=== PATIENT | male | born 1965 | race Caucasian/White ===

== ENCOUNTER 2020-04-21 13:19 | Emergency (ER) | payer OTHER, SELFPAY ==
[2020-04-21] VITALS (15 sets, daily range): BP systolic 107–142; BP diastolic 66–92; PULSE 72–83; RESP 11–24; TEMP 36.9; O2SAT 82–100
--- NOTE | ~2020-04-21 | XR_ITS ---
EXAMINATION: XR chest 2V EXAM DATE: 04/21/2020 14:01 INDICATION: Left upper chest pain. TECHNIQUE: Frontal and lateral projections of the chest obtained and reviewed. Comparison is made to prior examination from 03/11/2018. FINDINGS: Cervical fusion hardware. The lungs are clear. There are no pleural effusions. The cardi omediastinal silhouette is within normal limits. There is no pneumothorax suspected. The bones and soft tissues are unremarkable. IMPRESSION: No acute cardiopulmonary findings. Reviewed, dictated and finalized at location A.
--- NOTE | 2020-04-21 13:32 | ECG_ITS ---
Measurements Intervals [place] Rate: 86 P: 68 GA: 148 QRS: 43 QRSD: 102 T: 53 QT: 371 QTc: 445 Interpretive Statements SINUS RHYTHM BASELINE ARTIFACT- I, II, III, AVF ABNORMAL ECG Electronically Signed On 04-21-2020 14:02:50 CDT by Jose Baez D.O.
[2020-04-21] MEDS: ASPIRIN 81 MG CHEWABLE TABLET 324 MG PO (13:49)
[2020-04-21 13:52] LABS: Basophils Absolute Auto 0.1 K/mm3 (0.0-0.1); Basophils Percent Auto 0.9 % (0.2-1.2); Eosinophils Absolute Auto 0.4 K/mm3 (0-0.3); Eosinophils Percent Auto 4.9 % (0-4.4); Hematocrit 37.1 % (42.0-52.0); Hemoglobin 13.2 g/dL (14.0-18.0); Immature Granulocyte Absolute 0.01 K/mm3 (0.00-0.031); Immature Granulocyte Percent A 0.1 % (0-0.5); Lymphocytes Percent Auto 36.7 % (18.3-44.2); Mean Corpuscular HGB Conc 35.6 g/dl (32-36); Mean Corpuscular Hemoglobin 34.2 pg (26-34); Mean Corpuscular Volume 96.1 fl (80-100); Mean Platelet Volume 9.7 fl (7.4-10.4); Monocytes Absolute Auto 0.5 K/mm3 (0.1-0.6); Monocytes Percent Auto 6.6 % (2.6-8.5); Neutrophils Absolute Auto 3.9 K/mm3 (1.3-6.7); Neutrophils Percent Auto 50.8 % (45.5-73.1); Platelet Count Result 206 k/mm3 (150-375); Red Blood Count 3.86 M/mm3 (4.6-6.20); White Blood Count 7.6 K/mm3 (4.5-10.0)
[2020-04-21 14:01] LABS: INR 0.9; Prothrombin Time 11.9 Seconds (11.1-14.7)
[2020-04-21 14:02] LABS: Partial Thromboplastin Time 27.9 SECONDS (22.3-36.8)
[2020-04-21 14:05] LABS: Anion Gap 10 mmol/L (8-16); Blood Urea Nitrogen 14 mg/dL (9-20); Calcium 10.1 mg/dL (8.4-10.2); Carbon Dioxide 25 mmol/L (22-30); Chloride 104 mmol/L (98-107); Estimated CRCL calculation 103 ml/min; Estimated Glomerular Filt Rate > 60; Glucose 165 mg/dL (75-110); Potassium 3.9 mmol/L (3.4-5.0); Sodium 139 mmol/L (137-145)
--- NOTE | 2020-04-21 14:14 | ED.CHESTPAIN ---
HPI - Chest Pain General Chief Complaint: Chest Pain Stated Complaint: CP Time Seen by Provider: 04/21/20 13:39 Source: patient Mode of arrival: ambulatory Limitations: no limitations History of Present Illness HPI narrative: This is a 54 year old male that presents to the ER for left sided chest pain since yesterday. Reports he had been walking around at work yesterday. Reports he started to have left sided chest pain that was sharp in nature. Reports he took 2 nitro with some relief. Although he did continue to have some intermittent chest pains last night. Denies any chest pain currently. Reports shortness of breath today as well. Also reports he thinks he tweaked his knee at work. Has history of surgery on the right knee. Reports he has been having some aching to the right knee over the last couple of weeks. Reports pain with walking. Denies fever, cough, edema or erythema. Related Data Home Medications Medication Instructions Recorded Confirmed alprazolam 04/21/20 04/21/20 atorvastatin 04/21/20 metformin mg 04/21/20 metoprolol tartrate 04/21/20 nitroglycerin mg 04/21/20 ticagrelor [Brilinta] mg 04/21/20 Allergies Allergy/AdvReac Type Severity Reaction Status Date / Time niacin Allergy Mild RASH, Verified 04/21/20 13:31 Review of Systems Review of Systems: Narrative: CONSTITUTIONAL: Denies fever CARDIOVASCULAR: Reports chest pain. Denies edema. RESPIRATORY: Reports dyspnea. Denies cough All systems reviewed & are unremarkable except as noted in HPI and below PMFSH Past Medical History Medical History (Updated 04/21/20 @ 17:13 by Eliana Raya PA-C) History of coronary artery disease History of hyperlipidemia History of hypertension Surgical History Surgical History (Updated 04/21/20 @ 14:20 by Eliana Raya PA-C) History of coronary artery stent placement Social History Social History (Updated 04/21/20 @ 14:20 by Eliana Raya PA-C) Smoking status: Current some day smoker Gender identity (if verbalized by the patient): Male Exam Narrative: Exam Narrative: GENERAL: Well-appearing, obese, and in no acute distress. HEAD: Normocephalic, atraumatic. EYES: EOMI. NECK: Supple. No adenopathy or masses. No carotid bruits or JVD CHEST: Clear to auscultation. No respiratory distress. No wheezes rales or rhonchi HEART: Regular rate and rhythm. No murmur heard. Normal peripheral pulses. EXTREMITIES: Normal range of motion. No edema, erythema or obvious deformity. SKIN: Warm, dry, no rash. NEURO: No focal deficits. Alert and oriented x3. PSYCH: Normal mood and affect Course Consultations Consultation #1: Spoke with cardiology on-call, Iwona Alejandro about patient and work-up. Patient is to follow-up in clinic at his scheduled appointment. Date: 04/21/20 Time: 17:12 Vital Signs Vital signs: Vital Signs Temperature 98.4 F 04/21/20 13:28 Pulse Rate 83 04/21/20 13:28 Respiratory Rate 17 04/21/20 13:28 Blood Pressure 126/66 04/21/20 13:28 Pulse Oximetry 98 04/21/20 13:28 Temperature 98.4 F 04/21/20 13:28 Pulse Rate 76 04/21/20 15:03 Respiratory Rate 23 H 04/21/20 15:03 Blood Pressure 121/71 04/21/20 15:03 Pulse Oximetry 97 04/21/20 15:03 MDM - Chest Pain MDM Narrative Medical decision making narrative: Patient presents to the emergency department for intermittent episodes of chest pain yesterday. No active chest pain while in the ED today. His vitals are normal. BNP is not elevated. D-dimer is negative. EKG is without concerning changes. Baseline and 3-hour troponin are negative. Chest x-ray is without acute findings. His heart score is a 5. This would have him stay and be observed. Although, patient reports he will not stay for any further observation. Spoke with cardiology on-call, Iwona Alejandro about patient and work-up. Patient is to follow-up in clinic at his scheduled appointment. He was given warnings to return to the ER Lab Data Att
[2020-04-21 14:17] LABS: Troponin I < 0.012 ng/mL (0.000-0.034)
[2020-04-21 14:46] LABS: D Dimer 0.39 ug/mL (<0.48)
[2020-04-21 14:57] LABS: NT Pro B Type Natriuretic Pept 32 PG/ML (5-100)
[2020-04-21 16:19] LABS: Troponin I < 0.012 ng/mL (0.000-0.034)
== END 2020-04-21 17:28 | disposition home or self-care (01) ==
PROVIDERS: Physician Assistant; Emergency Provider Emergency Medicine; PCP Internal Medicine
DX: R07.89 Other chest pain (principal); I25.10 Atherosclerotic heart disease of native coronary artery without angina pectoris; E78.5 Hyperlipidemia, unspecified; I10 Essential (primary) hypertension; Z95.5 Presence of coronary angioplasty implant and graft; F17.200 Nicotine dependence, unspecified, uncomplicated; R94.31 Abnormal electrocardiogram [ECG] [EKG]; R06.02 Shortness of breath
CPT/HCPCS: 36415; 71046; 80048; 83880; 84484; 85025; 85380; 85610; 85730; 93005; 99284; A9270

== ENCOUNTER 2020-07-08 15:35 | Outpatient (CLI) | payer OTHER, SELFPAY ==
[2020-07-08 16:30] LABS: Troponin I < 0.012 ng/mL (0.000-0.034)
== END 2020-07-08 15:36 | disposition home or self-care (01) ==
LOC: ANHLAB 15:37
PROVIDERS: PCP Internal Medicine; Visit Provider Nurse Practitioner Adult Health
DX: R07.9 Chest pain, unspecified (principal)
CPT/HCPCS: 36415; 84484

== ENCOUNTER 2020-10-13 12:10 | Emergency (ER) | payer OTHER, SELFPAY ==
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
[2020-10-13 12:15] VITALS: BP 134/86; PULSE 91; RESP 16; TEMP 36.1; O2SAT 99
--- NOTE | 2020-10-13 14:05 | PC.NURSE ---
20/70 with right eye only and left eye only, 20/50 with both eyes
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
== END 2020-10-13 14:30 | disposition home or self-care (01) ==
PROVIDERS: Emergency Provider Emergency Medicine; PCP Internal Medicine
DX: S02.2XXA Fracture of nasal bones, initial encounter for closed fracture (principal); S05.12XA Contusion of eyeball and orbital tissues, left eye, initial encounter; S05.11XA Contusion of eyeball and orbital tissues, right eye, initial encounter; I25.10 Atherosclerotic heart disease of native coronary artery without angina pectoris; E78.5 Hyperlipidemia, unspecified; I10 Essential (primary) hypertension; Z95.5 Presence of coronary angioplasty implant and graft; F17.200 Nicotine dependence, unspecified, uncomplicated; Y04.0XXA Assault by unarmed brawl or fight, initial encounter
CPT/HCPCS: 70450; 70486; 99284

== ENCOUNTER 2021-01-17 08:15 | Outpatient (CLI) | payer OTHER, SELFPAY ==
--- NOTE | ~2021-01-17 | US_ITS ---
EXAMINATION: US art doppler w press LE BI DATE: 01/17/2021 09:06 INDICATION: Left lower limb pain TECHNIQUE: Segmental pressures and plethysmographic and Doppler waveforms of the brachial and lower e xtremity arteries were obtained. COMPARISON: None. FINDINGS: Right and left brachial artery pressures of 102 mm Hg and 113 mm Hg, respectively, are concordant (no rmal difference <= 30 mmHg). The right and left high-thigh pressure indices are 1.12 and 1.22, respec tively (normal > 1.2). The right ankle-brachial index (TITA) is 1.10 (normal >= 0.9-1). The right great toe-brachial index (T BI) is 0.93 (normal >= 0.6-0.8). The right lower extremity segmental pressure gradients are normal (n ormal gradients <= 20-30 mmHg between adjacent levels on the same leg or the same levels on the two l egs). Arterial waveforms are triphasic with brisk systolic upstrokes throughout the arteries of the r ight lower limb. The left TITA is 1.08. The left TBI is 0.91. The left lower extremity segmental pressure gradients are normal. Arterial waveforms are biphasic at the left popliteal artery and triphasic at the remaining arteries of the left lower limb with brisk systolic upstrokes throughout. IMPRESSION: 1. Normal TITA's and TBI's bilaterally. No significant occlusive disease. Reviewed, dictated and finalized at location A.
== END 2021-01-17 08:16 | disposition home or self-care (01) ==
PROVIDERS: PCP Internal Medicine; Visit Provider Internal Medicine Cardiovascular Disease
DX: M79.605 Pain in left leg (principal)
CPT/HCPCS: 93923

== ENCOUNTER → 2021-07-06 13:54 | Outpatient (CLI) | payer OTHER, SELFPAY ==
--- NOTE | ~2021-07-06 | XR_ITS ---
EXAMINATION: XR chest 2V EXAM DATE: 07/06/2021 14:29 INDICATION: Chest Pain, unspecified TECHNIQUE: Frontal and lateral projections of the chest obtained and reviewed. Comparison is made to prior examination from 04/21/2020. FINDINGS: The lungs are clear. There are no pleural effusions. The cardiomediastinal silhouette is within normal limits. There is no pneumothorax suspected. The bones and soft tissues are unremarkab le. Cervical fusion hardware. IMPRESSION: No acute cardiopulmonary findings. Reviewed, dictated and finalized at location B. [employer] DIRECT[employer]
--- NOTE | ~2021-07-06 | CT_ITS ---
EXAMINATION: CT abdomen pelvis w con DATE: 07/06/2021 14:45 INDICATION: Unspecified abdominal pain. TECHNIQUE: Computed tomography (CT) of the abdomen and pelvis was performed with 100 cc Omnipaque 350 intravenous contrast. The dose-length product was 1015.21 mGy-cm. Automated exposure control and ite rative reconstruction technique were employed. COMPARISON: None. FINDINGS: There is interlobular septal thickening peripherally in the lung bases with subtle areas of groundglass opacity, possibly chronic interstitial lung disease. Heart size is normal. No significan t pleural or pericardial effusion. Mild atherosclerosis. Retroaortic left renal vein. There is a 6 mm nonobstructing left renal stone. There are small subcentimeter hypodensities in the kidneys, most li julio benign cysts. Fatty infiltration of the liver. Gallbladder is present. The spleen, pancreas, adrenal glands are unr emarkable. Nonobstructive bowel gas pattern. No pelvic masses or fluid collections. Normal appendix. No evidence for diverticulitis. There are surgical changes of the anterior abdominal wall consistent with previous hernia repair. Mild lumbar spondylosis. IMPRESSION: 1. No acute abdominal abnormality identified. 2: Nonobstructing 6 mm left renal stone. 3: Probable mild chronic interstitial lung disease. Reviewed, dictated and finalized at location A. [employer]
--- NOTE | ~2021-07-06 | US_ITS ---
EXAMINATION: US scrotum doppler EXAM DATE: 07/06/2021 14:29 INDICATION: Scrotal Pain . Intermittent scrotal pain 3-5 months right side. TECHNIQUE: Multiple grayscale and Doppler images of the testicles and scrotum were obtained bilateral ly. There is no prior study for comparison. FINDINGS: Right testicle measures 3.9 x 2.3 x 3.2 cm and is morphologically normal. Low resistance Doppler [place] w confirmed. The epididymis is unremarkable. Small varicocele. Scrotalith. Left testicle measures 4.4 x 2.5 x 2.8 cm and is morphologically normal. Low resistance Doppler flow confirmed. The epididymis is unremarkable. Trace hydrocele. IMPRESSION: 1. Small right varicocele. 2. Trace left hydrocele. Reviewed, dictated and finalized at location B. WORKER
== END ==
PROVIDERS: PCP Internal Medicine; Visit Provider Internal Medicine
DX: R10.9 Unspecified abdominal pain (principal); N43.3 Hydrocele, unspecified; I86.1 Scrotal varices; N20.0 Calculus of kidney
CPT/HCPCS: 71046; 74177; 76870; 93976; Q9967

== ENCOUNTER → 2022-06-12 12:34 | Outpatient (CLI) | payer OTHER, SELFPAY ==
--- NOTE | ~2022-06-12 | XR_ITS ---
XR abdomen/kub 1V 06/12/2022 12:53 Indication: Hematuria Procedure: KUB Comparison: No prior studies for comparison. Findings: Bowel gas pattern is nonobstructive. There are surgical changes of ventral hernia repair. T here are pelvic phleboliths. The kidneys are obscured by bowel content. There is a calcification at t he L3-4 level on the left, possibly ureteral stone. Consider correlation with CT. There is moderate l umbar spondylosis. Impression: 1: Possible proximal left ureteral stone at the L3-4 level. Center correlation with CT. Reviewed, dictated and finalized at location A. [employer] Impression: 1: Possible proximal left ureteral stone at the L3-4 level. Center correlation with CT.
== END ==
PROVIDERS: PCP Internal Medicine
DX: N20.0 Calculus of kidney (principal)
CPT/HCPCS: 74018

== ENCOUNTER → 2022-10-16 11:14 | Outpatient (CLI) | payer BC, SELFPAY ==
--- NOTE | ~2022-10-16 | CT_ITS ---
EXAMINATION: CT chest high resolution wo co DATE: 10/16/2022 11:36 INDICATION: Abnormal findings on other diagnostic imaging TECHNIQUE: Computed tomography (CT) of the chest was performed without intravenous contrast. Automate d exposure control and iterative reconstruction technique were employed. Exam dose: 552.89 mGy-cm to ganesh exam DLP. COMPARISON: 07/06/2021 2 view chest 07/06/2021 CT abdomen pelvis FINDINGS: Normal heart size. Coronary calcifications. No pericardial or pleural effusion. No thoracic aortic aneurysm. No hilar or mediastinal mass lesion or lymphadenopathy. Normal morphology of the adrenal glands. Status post lower anterior cervical spine surgical fusion. There is patchy mild lobular septal soft tissue thickening of the peripheral lung rae, suggesting usual interstitial pneumonia type interstitial fibrosis. No pulmonary infiltrate or consolidation or suspicious pulmonary mass lesion is noted. Old healed lateral left fifth, sixth and seventh rib fractures. Lower anterior cervical spine surgica l fusion. Mild degenerative spurring of the thoracic and lumbar spine. IMPRESSION: Probable usual interstitial pneumonia interstitial fibrosis Reviewed, dictated and finalized at Location A. Reviewed, dictated and finalized at location L.
== END ==
PROVIDERS: PCP Internal Medicine; Visit Provider Internal Medicine Pulmonary Disease
DX: J84.9 Interstitial pulmonary disease, unspecified (principal)
CPT/HCPCS: 71250

== ENCOUNTER 2022-10-24 09:00 | Outpatient (CLI) | payer BC, SELFPAY ==
--- NOTE | 2022-10-24 11:29 | WPDSIXMINUTE ---
Six Minute Walk Procedure Procedure Performed Pulmonary Stress Test (6 min walk) Six Minute Walk Six Minute Walk: This is a 6 minute walk test. The test was performed and interpreted in accordance with the 2014 ERS/ATS task force guidelines. Findings: The patient's resting room air oxygen saturation measured by pulse oximetry was 95% and heart rate was 903 bpm. Patient ambulated for 518 meters and oxygen saturation remained 94 to 98%. Heart rate at the end of the study was 109 bpm. The patient did not qualify for supplemental oxygen at rest or with ambulation. There are no prior studies for comparison.
--- NOTE | 2022-10-24 11:30 | WPDPFTINT ---
PFT Procedure Performed PFT Procedure Performed Spirometry with Pre/Post Bronchodilator Plethysmography (Lung Vol) Diffusing Cap (DLCO) Flow Vol Loop PFT Interpretation This is a pulmonary function test with pre and post-bronchodilator spirometry, plethysmography and diffusing capacity. The test was performed and results interpreted in accordance with the 2019 and 2005 ATS/ERS Task Force guidelines respectively using the Global Lung Function Initiative-2012 reference equations. Patient demonstrated good effort and cooperation. Reproducibility criteria were met. The quality of the pre bronchodilator spirometry maneuver was Grade B and post bronchodilator spirometry maneuver was Grade A. Findings: Spirometry: The contour the inspiratory and expiratory flow tracing are normal. The pre bronchodilator FVC is 3.82 L, 90% predicted. The pre bronchodilator FEV1 is 3.22 L, 96% predicted. The pre bronchodilator FEV1: FVC ratio is 84%. The post bronchodilator FVC is 4.08 L, representing a 7% increase. The post bronchodilator FEV1 is 3.36 L, representing a 5% increase. The post bronchodilator FEV1: FVC ratio is 82%. Plethysmography: The total lung capacity is 7.40 L, 116% predicted. Functional residual capacity is 4.50 L, 139% predicted. The residual volume is 3.58 L, 178% predicted. Diffusing capacity: The diffusing capacity unadjusted for hemoglobin and carboxyhemoglobin is 23.3, 84% predicted. The diffusing capacity adjusted for alveolar volume is 4.32, 96% predicted. Impression: The spirometry is normal without evidence of an obstructive abnormality. There is no significant improvement after inhaling a single dose of albuterol. The total lung capacity and functional residual capacity are normal with an increased residual volume. This is an abnormal but nonspecific lung volume pattern. The diffusing capacity is normal. There are no prior studies for comparison.
== END 2022-10-24 09:01 | disposition home or self-care (01) ==
PROVIDERS: PCP Internal Medicine; Visit Provider Internal Medicine Pulmonary Disease
DX: R06.00 Dyspnea, unspecified (principal); J40 Bronchitis, not specified as acute or chronic; Z72.0 Tobacco use
CPT/HCPCS: 94060; 94618; 94726; 94729

== ENCOUNTER 2022-11-21 21:43 | Emergency (ER) | payer BC, SELFPAY ==
--- NOTE | ~2022-11-21 | CT_ITS ---
EXAMINATION: CT abdomen pelvis wo con DATE: 11/21/2022 22:06 INDICATION: left flank pain TECHNIQUE: Computed tomography (CT) of the abdomen and pelvis was performed without intravenous contr ast. Automated exposure control and iterative reconstruction technique were employed. The dose-length product was 1226.54 mGy-cm. COMPARISON: 07/06/2021. FINDINGS: Lower thorax: Moderate coronary artery calcifications. Peripheral reticulation in the lung bases. Liver: Hepatomegaly with diffuse fatty infiltration Biliary/Gallbladder: Gallbladder is collapsed. No bile duct dilation. Pancreas: No mass or duct dilation. Spleen: Normal. Adrenals:No mass. Kidneys: Subcentimeter hemorrhagic cyst in the left upper pole. Punctate nonobstructing left upper po le calcification. Subtle hypodensities of the renal pyramids in the right kidney may represent medull kelly nephrocalcinosis versus nonobstructing calculi. Moderate left and mild right perinephric strandin g. Mild left pelviectasis and caliectasis. 6 x 8 mm calcification in the left UPJ. GI tract: No small or large bowel dilation. Normal appendix. Diverticulosis without diverticulitis. Mesentery/Peritoneum: No ascites, mass, or free air. Retroperitoneum: No mass. Atherosclerotic abdominal aortic and/or arterial calcifications. Pelvis: The urinary bladder is mostly decompressed. Mild prostatomegaly with prostatic calcifications . Soft Tissues: Anterior umbilical hernia mesh. Bones: No acute osseous finding. IMPRESSION: 6 x 8 mm calcification at the left UPJ causing moderate obstructive uropathy. Reviewed, dictated and finalized at location K.
--- NOTE | ~2022-11-21 | XR_ITS ---
Supine and upright views of the abdomen Clinical history: Renal stone COMPARISON: 06/12/2022, and CT performed earlier on 11/21/2022 Findings: Bowel gas pattern is nonspecific. No evidence for obstruction or free air. Possible [address] one projecting just superior to the left iliac crest. Stable pelvic phleboliths. Evidence of prior he rniorrhaphy. Osseous structures are intact. Impression: Suspected 5 mm stone projecting just superior to the left iliac crest. Reviewed, dictated and finalized at location M. Impression: Suspected 5 mm stone projecting just superior to the left iliac crest.
[2022-11-21 21:46] VITALS: BP 181/110; PULSE 99; RESP 20; TEMP 36.1; O2SAT 100
[2022-11-21 22:00] LABS: Basophils Percent Auto 0.5 % (0.2-1.2); Eosinophils Absolute Auto 0.4 K/mm3 (0-0.3); Eosinophils Percent Auto 4.1 % (0-4.4); Hematocrit 37.5 % (42.0-52.0); Hemoglobin 13.1 g/dL (14.0-18.0); Immature Granulocyte Absolute 0.01 K/mm3 (0.00-0.031); Immature Granulocyte Percent A 0.1 % (0-0.5); Lymphocytes Absolute Auto 3.94 K/mm3 (0.9-3.2); Lymphocytes Percent Auto 46.6 % (18.3-44.2); Mean Corpuscular HGB Conc 34.9 g/dl (32-36); Mean Platelet Volume 9.2 fl (7.4-10.4); Monocytes Absolute Auto 0.5 K/mm3 (0.1-0.6); Monocytes Percent Auto 5.7 % (2.6-8.5); Neutrophils Absolute Auto 3.6 K/mm3 (1.3-6.7); Platelet Count Result 162 k/mm3 (150-375); Red Blood Count 3.64 M/mm3 (4.6-6.20); Red Cell Distribution Width 14.3 % (11.5-14.5); White Blood Count 8.5 K/mm3 (4.5-10.0)
[2022-11-21 22:11] LABS: Alanine Aminotransferase 75 U/L (6-50); Albumin Level 4.9 g/dL (3.5-5.1); Alkaline Phosphatase 106 U/L (38-126); Anion Gap 11 mmol/L (8-16); Aspartate Amino Transferase 82 U/L (17-59); Bilirubin,Total 0.7 mg/dL (0.2-1.3); Blood Urea Nitrogen 14 mg/dL (9-20); Calcium 9.2 mg/dL (8.4-10.2); Carbon Dioxide 24 mmol/L (22-30); Chloride 100 mmol/L (98-107); Estimated CRCL calculation 90 ml/min; Estimated Glomerular Filt Rate > 60; Glucose 180 mg/dL (65-110); Potassium 4.2 mmol/L (3.4-5.0); Sodium 135 mmol/L (137-145)
--- NOTE | 2022-11-21 22:21 | PC.NURSE ---
Pt provided urine sample and believes he may have passed a stone. There is mucous present. Pt states his pain has mostly resolved at this time.
[2022-11-21 22:31] LABS: Appearance Urine Clear (Clear); Bacteria Urine None Seen /hpf; Bilirubin Urine Negative (Negative); Blood Urine 3+ (Negative); Color Urine Yellow (Yellow); Glucose Urine UA Negative (Negative); Ketones Urine Negative (Negative); Leukocyte Esterase Ur Negative LEU/UL (Negative); Nitrate Urine Negative (Negative); Non Pathogenic Casts 0-2; Protein Urine 1+ mg/dL (Negative); RBC Urine >100 /hpf (0-2); Specific Grav Ur 1.012 (1.001-1.035); Squamous Epithelial Cell Urine None seen /hpf (Few); Urobilinogen Urine 0.2 mg/dL (<2.0); WBC Urine 0-5 /hpf
[2022-11-21 22:37] LABS: Add Urine Microscopic? YES
[2022-11-21] MEDS: ONDANSETRON INJ 4 MG/2 ML VIAL IV PUSH (23:02)
[2022-11-21] MEDS: MORPHINE SULFATE (*CRX) 4 MG/ML INJ IV PUSH (23:02)
--- NOTE | 2022-11-21 23:22 | ED.GENADULT ---
HPI - General Adult General Chief complaint: Urogenital-Male <Adams Grissom PA-C - Last Filed: 11/22/22 02:13> Stated complaint: possible kidney stone <JUDI Nolan Last Filed: 11/22/22 02:13> Time Seen by Provider: 11/21/22 22:46 <JUDI Nolan Last Filed: 11/22/22 02:13> Source: patient <JUDI Nolan Last Filed: 11/22/22 02:13> Limitations: no limitations <JUDI Nolan Last Filed: 11/22/22 02:13> History of Present Illness HPI narrative: This is a 57-year-old male with PMH of ILD, CAD, HLD, HTN who presents to the ED with chief complaint of left flank pain onset earlier today just prior to arrival. Patient states the flank pain radiates around into the suprapubic area and left side of the abdomen. Endorses hematuria. Denies dysuria or frequency. Patient states that when he gave a urine sample he thought he saw a stone in the cup. Does note a history of kidney stone many years ago and states this feels the same. Denies fevers, chills, vomiting, diarrhea. Patient also notes he has had problems with hematuria for the past few months and has been seeing his urologist but states his insurance has not been able to pay for CT scans. <JUDI Nolan Last Filed: 11/22/22 02:13> Related Data Home medications: Home Medications Medication Instructions Recorded Confirmed alprazolam 0.25 mg tablet 04/21/20 04/21/20 atorvastatin 40 mg tablet 04/21/20 metformin 500 mg tablet mg 04/21/20 metoprolol tartrate 25 mg tablet 04/21/20 nitroglycerin 0.4 mg sublingual mg 04/21/20 tablet ticagrelor 60 mg tablet (Brilinta) mg 04/21/20 <JUDI Nolan Last Filed: 11/22/22 02:13> Allergies/adverse reactions: Allergies Allergy/AdvReac Type Severity Reaction Status Date / Time niacin Allergy Mild RASH, Verified 09/06/22 09:11 <Adams Grissom PA-C - Last Filed: 11/22/22 02:13> Review of Systems Review of Systems: CONSTITUTIONAL: Denies fever, chills, or sweats. EYES: Denies visual changes, redness, or discharge. ENT: Denies rhinorrhea, congestion, sore throat, or otalgia. CARDIOVASCULAR: Denies chest pain, palpitations, or edema. RESPIRATORY: Denies cough or dyspnea. GASTROINTESTINAL: See HPI GENITOURINARY: Denies dysuria or hematuria. SKIN: Denies rash or itching. MUSCULOSKELETAL: Denies back pain, joint pain, or myalgia. NEUROLOGIC: Denies headache, numbness, dizziness, or weakness. PSYCHIATRIC: Denies anxiety or depression. <Adams Grissom PA-C - Last Filed: 11/22/22 02:13> PMFSH Past Medical History Medical History: Medical History History of coronary artery disease History of hyperlipidemia History of hypertension <Adams Grissom PA-C - Last Filed: 11/22/22 02:13> Surgical History Surgical History: Surgical History History of coronary artery stent placement <Adams Grissom PA-C - Last Filed: 11/22/22 02:13> Social History Social History: Social History Smoking status: Current some day smoker Gender identity (if verbalized by the patient): Male <Adams Grissom PA-C - Last Filed: 11/22/22 02:13> Exam Narrative: GENERAL: Well-appearing, well-nourished, and in no acute distress. HEAD: Normocephalic, atraumatic. EYES: PERRLA and EOMI. ENT: Nares clear, no rhinorrhea or epistaxis. Mucous membranes moist. Oropharynx without tonsillar hypertrophy exudate or other lesions. NECK: Supple. No adenopathy or masses. CHEST: No respiratory distress. Clear to auscultation. No wheezes rales or rhonchi HEART: Regular rate and rhythm. No murmur heard. Normal peripheral pulses. ABDOMEN: Left flank tenderness. Also has some left lower quadrant tenderness. Negative for right flank tenderness. Moderate distention. Soft, normal active peter
[2022-11-22 00:30] VITALS: BP 107/57; PULSE 82; RESP 15; O2SAT 94
== END 2022-11-22 00:53 | disposition home or self-care (01) ==
PROVIDERS: Emergency Medicine; Emergency Provider Physician Assistant; PCP Internal Medicine
DX: N13.9 Obstructive and reflux uropathy, unspecified (principal); N20.1 Calculus of ureter; I25.10 Atherosclerotic heart disease of native coronary artery without angina pectoris; E78.5 Hyperlipidemia, unspecified; I10 Essential (primary) hypertension; Z95.5 Presence of coronary angioplasty implant and graft; F17.200 Nicotine dependence, unspecified, uncomplicated; Z87.442 Personal history of urinary calculi
CPT/HCPCS: 36415; 74018; 74176; 80053; 81001; 85025; 96374; 96375; 99284; J2270; J2405

== ENCOUNTER → 2022-12-12 13:04 | Outpatient (CLI) | payer BC, SELFPAY ==
--- NOTE | ~2022-12-12 | XR_ITS ---
Supine and upright views of the abdomen Clinical history: Renal stone COMPARISON: 11/21/2022 Findings: Bowel gas pattern is nonspecific. No evidence for obstruction or free air. Evidence of prio r herniorrhaphy. Stable pelvic calcification, likely phleboliths. Questionable punctate left renal st ones. Osseous structures are intact. Impression: Possible punctate left renal stones, unchanged. Stable presumed pelvic phleboliths. Reviewed, dictated and finalized at location . Impression: Possible punctate left renal stones, unchanged. Stable presumed pelvic phleboliths.
== END ==
PROVIDERS: PCP Nurse Practitioner Family; Visit Provider Urology
DX: N20.0 Calculus of kidney (principal)
CPT/HCPCS: 74018

== ENCOUNTER → 2023-02-01 12:11 | Outpatient (CLI) | payer BC, SELFPAY ==
--- NOTE | ~2023-02-01 | US_ITS ---
Renal-Bladder ultrasound Clinical History: Kidney stone Technique: Real-time sonographic imaging of the kidneys and urinary bladder was performed. Findings: The right kidney measures 12.4 cm in length and the left kidney measures 12.6 cm. There is no hydronephrosis. Possible 6 mm nonobstructing right renal stone. There is a 1.6 cm nonobstructing l eft lower pole renal stone. Renal cortical echogenicity is within normal limits. No renal mass lesion is identified. The urinary bladder is moderately distended at the time of this exam. No intraluminal echoes are iden tified. No abnormal wall thickening is seen. Impression: Probable bilateral nephrolithiasis, as detailed above. No hydronephrosis. Reviewed, dictated and finalized at location . Impression: Probable bilateral nephrolithiasis, as detailed above. No hydronephrosis.
== END ==
PROVIDERS: PCP Nurse Practitioner Family; Visit Provider Urology
DX: N20.0 Calculus of kidney (principal)
CPT/HCPCS: 76775

== ENCOUNTER → 2023-03-21 13:05 | Outpatient (CLI) | payer BC, SELFPAY ==
--- NOTE | ~2023-03-21 | US_ITS ---
EXAMINATION: US renal BI DATE: 03/21/2023 13:25 INDICATION: Calculus of kidney. Left flank pain. TECHNIQUE: Multiple ultrasound grayscale images of the kidneys were obtained. COMPARISON: Ultrasound 02/01/2023, CT abdomen and pelvis 11/21/2022 FINDINGS: The right kidney measures 13.0 x 6.9 x 8.6 cm. The left kidney measures 14.1 x 7.0 x 6.0 cm. The kidn eys demonstrate normal parenchymal echogenicity. There is no hydronephrosis. The bladder is normal. IMPRESSION: 1. Normal kidneys. No hydronephrosis. Reviewed, dictated and finalized at location E.
== END ==
PROVIDERS: PCP Nurse Practitioner Family; Visit Provider Urology
DX: N20.0 Calculus of kidney (principal)
CPT/HCPCS: 76775

== ENCOUNTER 2023-06-25 12:40 | Outpatient (CLI) | payer BC, SELFPAY ==
--- NOTE | ~2023-06-25 | US_ITS ---
US renal BI 06/25/2023 12:56 Procedure: Realtime transabdominal ultrasound of the kidneys and bladder. Indication: Renal stone Comparison: CT dated 11/21/2022 and ultrasound dated 03/21/2023 Findings: Renal echotexture is normal bilaterally without hydronephrosis, contour deforming mass. The re is a hyperechoic focus lateral aspect of the right kidney measuring 6 mm, suspicious for nonobstru cting renal stone. The right kidney measures 13.6 cm and left kidney measures 11.1 cm. Bladder withi n normal limits. Impression: 1: Echogenic focus lateral aspect of the right kidney measuring 6 mm, suspicious for nonobstructing n ephrolithiasis. Reviewed, dictated and finalized at location L. [employer] Impression: 1: Echogenic focus lateral aspect of the right kidney measuring 6 mm, suspiciou s for nonobstructing nephrolithiasis.
== END 2023-06-25 12:41 ==
LOC: MICIMG 12:41
PROVIDERS: PCP Nurse Practitioner Family; Visit Provider Urology
DX: N20.0 Calculus of kidney (principal)
CPT/HCPCS: 76775

== ENCOUNTER → 2023-09-03 12:21 | Outpatient (CLI) | payer BC, SELFPAY ==
--- NOTE | ~2023-09-03 | XR_ITS ---
Supine and upright views of the abdomen Clinical history: Kidney stones COMPARISON: 12/12/2022 Findings: Bowel gas pattern is nonspecific. No evidence for obstruction or free air. No abnormal mass lesion or calcification is seen. Evidence of prior herniorrhaphy. Osseous structures are intact. Impression: No definite renal stones identified. Prior herniorrhaphy. Reviewed, dictated and finalized at [facility]. ANALYST Impression: No definite renal stones identified. Prior herniorrhaphy.
== END ==
PROVIDERS: PCP Nurse Practitioner Family; Visit Provider Urology
DX: N20.0 Calculus of kidney (principal)
CPT/HCPCS: 74018

== ENCOUNTER 2023-10-03 09:52 | Outpatient (CLI) | payer BC, SELFPAY ==
--- NOTE | ~2023-10-03 | CT_ITS ---
EXAMINATION: CT cervical spine wo con DATE: 10/03/2023 10:07 INDICATION: Cervical degenerative disc disease with radiculopathy TECHNIQUE: Computed tomography (CT) of the cervical spine was performed without intravenous contrast. Automated exposure control and iterative reconstruction technique were employed. The dose-length pro duct was 385.15 mGy-cm. COMPARISON: Cervical spine radiographs dated 12/18/2016 FINDINGS: Alignment is normal. Discectomy and anterior spinal fusion at C5-C6 with their body bone graft cage a nd anterior plate and screw fixation. Unchanged chronic minimal anterior vertebral body height loss a t C3. Remaining vertebral body heights are normal. No fracture. Mild to moderate disc height loss at C6-C7. Mild mucosal thickening the paranasal sinuses. Small amount of atherosclerotic calcification a t the bilateral carotid bulbs. Cervical soft tissues are otherwise unremarkable. Visualized apices of lungs are clear. The following disc levels are specifically discussed: C2-C3: The disc does not extend beyond the endplate margin. There is mild left uncovertebral joint os teoarthritis. There is no facet joint osteoarthritis. There is no neural foraminal stenosis. There is no central canal stenosis. C3-C4: The disc does not extend beyond the endplate margin. There is mild right and minimal left unco vertebral joint osteoarthritis. There is mild bilateral facet joint osteoarthritis. There is no neura l foraminal stenosis. There is no central canal stenosis. C4-C5: Disc is mildly bulging. There is minimal bilateral uncovertebral joint osteoarthritis. There i s mild right and mild to moderate left facet joint osteoarthritis. There is minimal neural foraminal stenosis. There is no central canal stenosis. C5-C6: Disc space is fused with mild hypertrophic changes at the fused bilateral uncovertebral joints .. There is mild bilateral facet joint osteoarthritis. There is mild bilateral neural foraminal steno sis. There is no central canal stenosis. C6-C7: The disc does not extend beyond the endplate margin. There is moderate bilateral uncovertebral joint osteoarthritis. There is mild bilateral facet joint osteoarthritis. There is moderate right an d mild to moderate left neural foraminal stenosis. There is minimal central canal stenosis. C7-T1: The disc does not extend beyond the endplate margin. There is no uncovertebral joint osteoarth ritis. There is moderate bilateral facet joint osteoarthritis. There is minimal bilateral neural fora lorna stenosis. There is no central canal stenosis. IMPRESSION: 1. Mild cervical spondylosis with instrumented C5-C6 anterior spinal fusion. Reviewed, dictated and finalized at location L.
== END 2023-10-03 09:53 ==
LOC: MICIMG 09:53
PROVIDERS: PCP Nurse Practitioner Family; Visit Provider Nurse Practitioner Family
DX: M50.30 Other cervical disc degeneration, unspecified cervical region (principal); Z98.1 Arthrodesis status; M47.22 Other spondylosis with radiculopathy, cervical region
CPT/HCPCS: 72125

== ENCOUNTER 2024-07-01 11:12 | Outpatient (CLI) | payer BC, SELFPAY ==
--- NOTE | ~2024-07-01 | XR_ITS ---
Supine and upright views of the abdomen Clinical history: Abdominal pain Findings: Bowel gas pattern is nonspecific. No evidence for obstruction or free air. No stable pelvic calcification, possibly phlebolith or bladder stone. Evidence of prior herniorrhaphy. Osseous struct ures are intact. Impression: Stable bladder stone versus phlebolith. Evidence of prior herniorrhaphy. Reviewed, dictated and finalized at [facility]. HIKER Impression: Stable bladder stone versus phlebolith. Evidence of prior herniorrhaphy.
== END 2024-07-01 11:13 | disposition home or self-care (01) ==
LOC: MICIMG 11:13
PROVIDERS: PCP Nurse Practitioner Family; Visit Provider Nurse Practitioner Family
DX: R31.1 Benign essential microscopic hematuria (principal); R10.9 Unspecified abdominal pain; R11.0 Nausea; Z87.442 Personal history of urinary calculi
CPT/HCPCS: 74018

== ENCOUNTER 2025-04-06 09:28 | Outpatient (CLI) | payer OTHER, SELFPAY ==
--- NOTE | ~2025-04-06 | CT_ITS ---
EXAMINATION:CT lung screening DATE: 04/06/2025 09:42 INDICATION: Nicotine dependence, cigarettes, uncomplicated. TECHNIQUE: Computed tomography (CT) of the chest was performed without intravenous contrast. Automated exposure control and iterative reconstruction technique were employed. The dose-length product (DLP) was 187.19 mGy-cm. COMPARISON: Chest CT 10/16/2022 FINDINGS: There is mild emphysema. There is widespread peripheral septal thickening in the lungs associated with groundglass opacities. There is peripheral honeycombing in the upper lobes. These findings are consistent with chronic interstitial lung disease in a pattern of usual interstitial pneumonia (UIP). No pleural effusion. The heart size is normal. There are coronary artery calcifications. No pericardial effusion. There is diffuse hepatic steatosis. There are changes of anterior fusion procedure in cervical spine. There is moderate thoracic spondylosis. IMPRESSION: 1. Lung-RADS category 2: Benign appearance or behavior. Continue annual screening with noncontrast low-dose chest CT in 12 months. Reviewed, dictated and finalized at location E. IMPRESSION: 1. Lung-RADS category 2: Benign appearance or behavior. Continue annual screeni ng with noncontrast low-dose chest CT in 12 months.
== END 2025-04-06 09:29 | disposition home or self-care (01) ==
LOC: MICIMG 09:29
PROVIDERS: PCP Nurse Practitioner Family; Visit Provider Nurse Practitioner Family
DX: Z12.2 Encounter for screening for malignant neoplasm of respiratory organs (principal); F17.210 Nicotine dependence, cigarettes, uncomplicated
CPT/HCPCS: 71271